=== PATIENT | male | born 1940 | race Caucasian/White ===

== ENCOUNTER 2018-07-04 15:56 | Inpatient (IN) | payer OTHER, BC ==
[~2018-07-04] VITALS: Ht 175.3 cm; Wt 54.0 kg
--- NOTE | ~2018-07-04 | O ---
[facility] [place] [address] OPERATIVE REPORT Name: MAYE TAVERA Room #: 430-P [facility] IN M.R.#: [id number] Admission: 07/04/18 Attend Phys: Lori Del Cid Discharge: Date of : 38 Report #: [id number] THIS REPORT FOR: //name// CC: Lori Asencio DATE OF SERVICE: 07/05/2018 PREOPERATIVE DIAGNOSIS: Left femoral neck fracture. POSTOPERATIVE DIAGNOSIS: Left femoral neck fracture. PROCEDURE: Left hip hemiarthroplasty. SURGEON: Lebron Espinosa M.D. VALIDATION ANALYST: Colette Manzano. ANESTHESIA: General. ESTIMATED BLOOD LOSS: 400 mL. DRAINS: None. TOURNIQUET: None. COMPLICATIONS: None. DESCRIPTION OF PROCEDURE: The patient brought to the operating room where he was placed under general anesthesia. Once adequate general anesthesia, he was placed onto the operative table in lateral decubitus position. His left lower extremity prepped and draped in sterile manner. The extremity was then a 14-cm incision over the tip of the greater trochanter. Dissection was carried down to the tensor fascia, which was incised in line with the incision exposing the greater trochanter and the posterior aspect of the hip. The piriformis was then identified and elevated along with the joint capsule off of the joint exposing the hematoma inside the joint, which was then removed. The femoral head was extracted with a Adler elevator and measured at size 50. Once this was done, the femoral neck was cut to length with the oscillating saw. Subsequent reaming and broaching for a size 8 femoral stem was then achieved. The trial components were then placed. This is very stable. The wound was irrigated copiously and the final components were placed. This was the [employer] system with a size 8 femoral stem, +0 neck and 50-mm head. Once complete, the wound was irrigated once again copiously. The capsular layer was closed with #2 FiberWire suture. The piriformis was repaired back to the piriformis fossa with #5 FiberWire suture. The wound was irrigated once again copiously and closed with [facility] [address] [place] [address] OPERATIVE REPORT Name: MAYE TAVERA Room #: 430-P [facility] IN M.R.#: [id number] Admission: 07/04/18 Attend Phys: Lori Del Cid Discharge: Date of : 38 Report #: [id number] #1 Vicryl for the fascia, 2-0 Vicryl in subcutaneous tissues and waleska for the skin. The wounds were dressed with Xeroform, 4 x 4s, and sterile soft compressive dressing was placed. There was no tourniquet. There were no complications. The patient went to the recovery room without incident. By: [id number] Lebron Espinosa MD /nt
--- NOTE | ~2018-07-04 | EKG ---
[address] [place] [address] ELECTROCARDIOGRAM REPORT Name: OMERDONMAYE W Room #: 430-P ADM IN M.R.#: [id number] Admission: 07/04/18 Attend Phys: Lori Del Cid Discharge: Date of : 38 Report #: [id number] THIS REPORT FOR: //name// [facility] ED Test Date: 2018-07-04 Test Time: 16:02:22 Pat Name: MAYE TAVERA Department: Room: 430 Gender: M Licensed Land Surveyor: ANT : 1940 Requested By: Sadaf Blum Order Number: [id number] MD: [place] Measurements Intervals [place] Rate: 83 P: CA: QRS: 0 QRSD: 82 T: 37 QT: 394 QTc: 463 Interpretive Statements Sinus rhythm Low voltage, extremity leads Compared to ECG 11/13/2010 07:53:47 No significant change Electronically Signed On 07-05-2018 10:23:15 CLIENT DEVELOPMENT MANAGER by Laek Obregon [email or web address] <ELECTRONICALLY SIGNED> By: [place] MD 07/05/18 1023 1602 1602 [place] MD /KARLY
--- NOTE | ~2018-07-04 | HC ---
[facility] [place] [address] CONSULTATION Name: MAYE TAVERA Room #: 430-P ADM IN M.R.#: [id number] Admission: 07/04/18 Attend Phys: Lori Del Cid Discharge: Date of : 38 Report #: [id number] THIS REPORT FOR: //name// CC: Lori Asencio DATE OF SERVICE: 07/05/2018 CHIEF COMPLAINT: Left hip fracture. HISTORY OF PRESENT ILLNESS: This is a 78-year-old gentleman who fell due to dizziness apparently, was evaluated in the Emergency Room, determined to have a left femoral neck fracture and was then subsequently admitted. He denied any use of any blood thinners. Orthopedics was consulted for management of the hip fracture. PAST MEDICAL HISTORY: Significant for hypertension, arthritis, hypercholesterolemia and stomach problems. SOCIAL HISTORY: Significant for alcohol use, negative for tobacco use. REVIEW OF SYSTEMS: As above. PHYSICAL EXAMINATION: GENERAL: Awake, alert, in no distress. EXTREMITIES: Examination of the left lower extremity notes it is shortened and externally rotated. He has good capillary refill distally and is neurovascularly intact. DIAGNOSTIC DATA: X-rays note a displaced left hip femoral neck fracture. IMPRESSION: Left hip femoral neck fracture. PLAN: Options were discussed at length with the patient. At this point, we would proceed with a left hip hemiarthroplasty. Risks, benefits, alternatives, and complications were discussed at length. Thank you for allowing me to participate in the care of this pleasant patient. By: 0902 Lebron Espinosa MD /[place]
[~2018-07-04 15:56] MED LIST: ASPIRIN EC81 M1; AVALIDE 300-121 EACH; CRESTOR10 MG; LISINOPRIL-HCT1 EAC2; NORCO 5-325 TA1 EACH PO; PEPCID40 MG; PLAVIX 75 MG TA75 MG; PREDNISONE 10 M10 M1; ZETIA10 MG; ZOFRAN ODT4 MG PO
[2018-07-04 15:57] VITALS: BP 146/72
[2018-07-04 17:15] LABS: ABSOLUTE NEUTROPHILS 4.2 thou/uL (1.4-8.2); BASOPHILS 0.5 % (0.0-2.0); EOSINOPHILS 3.6 % (0.0-3.0); HEMATOCRIT 37.2 % (42.0-52.0); HEMOGLOBIN 12.6 gm/dL (14.0-18.0); LYMPHOCYTES 16.4 % (24.0-44.0); MCH 35.9 pg (26.0-34.0); MCHC 33.9 g/dL (28.0-37.0); MCV 105.7 fL (80.0-100.0); MONOCYTES 10.5 % (1.0-8.0); PLATELET COUNT 190 thou/uL (150-400); RBC 3.52 mil/uL (4.50-6.00); RDW 14.5 % (10.5-14.5); WBC 6.1 thou/uL (4.0-11.0)
[2018-07-04 17:26] LABS: CALCIUM 8.7 mg/dL (8.5-10.1); CREATININE 0.8 mg/dL (0.7-1.3); POTASSIUM 3.8 mmol/L (3.5-5.1)
[2018-07-04 17:32] LABS: ALBUMIN 3.1 g/dL (3.4-5.0); TOTAL BILIRUBIN 0.3 mg/dL (<0.1-1.0); TOTAL PROTEIN 6.9 g/dL (6.4-8.2)
[2018-07-04] MEDS ORDERED: FOLIC ACID1 MG PO (17:37)
[2018-07-04] MEDS ORDERED: FLOMAX0.4 MG PO (17:37)
[2018-07-04] MEDS ORDERED: OMEPRAZOLE40 MG PO (17:39)
[2018-07-04] MEDS ORDERED: ATORVASTATIN CA40 MG PO (17:40)
[2018-07-04] MEDS ORDERED: KEPPRA 500 MG500 M1 PO (17:40)
[2018-07-04] MEDS ORDERED: REMERON15 MG PO (17:40)
[2018-07-04] MEDS ORDERED: METHOTREXATE 22.5 MG PO (17:41)
[2018-07-04 18:21] LABS: MACROCYTES 1+
[2018-07-04 18:32] VITALS: BP 143/73
[2018-07-04 19:27] LABS: TSH 2.013 uIU/mL (0.358-3.740)
[2018-07-04 19:34] VITALS: BP 143/73
[2018-07-04 19:48] VITALS: BP 142/92
[2018-07-05 04:30] VITALS: BP 149/68
[2018-07-05 05:56] LABS: ALBUMIN 3.5 g/dL (3.4-5.0); CALCIUM 8.9 mg/dL (8.5-10.1); CREATININE 0.8 mg/dL (0.7-1.3); POTASSIUM 3.9 mmol/L (3.5-5.1)
[2018-07-05 08:20] VITALS: BP 141/77
[2018-07-05 18:09] VITALS: BP 123/66
[2018-07-05 19:20] VITALS: BP 136/76
[2018-07-05 19:30] VITALS: BP 100/69
[2018-07-05 20:30] VITALS: BP 115/70
[2018-07-06 05:46] LABS: HEMATOCRIT 33.8 % (42.0-52.0); HEMOGLOBIN 11.3 gm/dL (14.0-18.0); MCH 35.8 pg (26.0-34.0); MCHC 33.6 g/dL (28.0-37.0); MCV 106.7 fL (80.0-100.0); RBC 3.16 mil/uL (4.50-6.00); WBC 6.8 thou/uL (4.0-11.0)
[2018-07-06 06:02] LABS: ALBUMIN 2.6 g/dL (3.4-5.0); CALCIUM 8.7 mg/dL (8.5-10.1); CREATININE 0.8 mg/dL (0.7-1.3); PHOSPHORUS 3.5 mg/dL (2.5-4.9); POTASSIUM 4.2 mmol/L (3.5-5.1)
[2018-07-06 07:05] VITALS: BP 116/56
[2018-07-06 15:26] VITALS: BP 103/59
[2018-07-06 20:00] VITALS: BP 100/55
[2018-07-07 05:41] VITALS: BP 121/55
[2018-07-07 08:12] VITALS: BP 145/74
[2018-07-07] MEDS ORDERED: MIRALAX17 GM PO (15:24)
[2018-07-07] MEDS ORDERED: COLACE100 MG PO (15:24)
[2018-07-07] MEDS ORDERED: LIDOPATCH1 EACH TRANSDERM (15:24)
[2018-07-07] MEDS ORDERED: ENOXAPARIN30 MG/0.1 SUBQ (15:26)
== END 2018-07-07 17:37 | DRG 469 ==
LOC: ER 15:56 → 4E 17:31 → EROBS 17:31 → 4E 19:30
PROVIDERS: Hospitalist; Nurse Practitioner Family; Orthopaedic Surgery Foot and Ankle Surgery
PROC: 0SRS0JZ Replacement of Left Hip Joint, Femoral Surface with Synthetic Substitute, Open Approach (ICD-10-PCS; principal; 2018-07-05)
DX: S72.002A Fracture of unspecified part of neck of left femur, initial encounter for closed fracture (principal); E43 Unspecified severe protein-calorie malnutrition; S22.42XA Multiple fractures of ribs, left side, initial encounter for closed fracture; E87.1 Hypo-osmolality and hyponatremia; Z68.1 Body mass index [BMI] 19.9 or less, adult; I10 Essential (primary) hypertension; M19.90 Unspecified osteoarthritis, unspecified site; E78.00 Pure hypercholesterolemia, unspecified; E86.0 Dehydration; E86.1 Hypovolemia; M62.84 Sarcopenia; D75.89 Other specified diseases of blood and blood-forming organs; W18.30XA Fall on same level, unspecified, initial encounter; Z79.82 Long term (current) use of aspirin; Z79.899 Other long term (current) drug therapy; Y93.89 Activity, other specified; Y92.098 Other place in other non-institutional residence as the place of occurrence of the external cause; Y99.8 Other external cause status; Z23 Encounter for immunization
CPT/HCPCS: 10084; 50010; 50101; 50382; 50414; 50939; 51412; 53000; 56525; 56530; 56531; 57117; 62110; 62900; 70005